=== PATIENT | female | born 1985 | race Caucasian/White ===

== ENCOUNTER → 2022-07-21 | Outpatient (CLI) | payer OTHER ==
--- NOTE | 2022-07-22 07:22 | XR ---
EXAMINATION TYPE: XR cervical spine comp DATE OF EXAM: 07/21/2022 4:26 PM INDICATION: Patient age:Female; 37 years old; Reason for study: S13.9XXD SPRAIN OF JOINTS AND LIGAMENTS OF UNSP PA; COMPARISON: None TECHNIQUE: The cervical spine was imaged in frontal, lateral, odontoid and bilateral oblique. FINDINGS: The osseous structures show normal alignment without evidence of an acute fracture. There are osteoph ytes noted throughout the cervical spine on the anterior and lateral aspects of the vertebral bodies. The intervertebral disk spaces are narrowed at multiple levels. Pedicles are intact. Soft tissues a re within normal limits. The odontoid appears intact. IMPRESSION: 1. No fracture or dislocation. 2. Mild degenerative disc disease changes of the cervical spine worse at C5-C6.
== END | disposition home or self-care (01) ==
LOC: RADXRMAIN 16:02
PROVIDERS: ATTEND Family Medicine
DX: S13.9XXD Sprain of joints and ligaments of unspecified parts of neck, subsequent encounter (principal); M50.322 Other cervical disc degeneration at C5-C6 level; X58.XXXD Exposure to other specified factors, subsequent encounter
CPT/HCPCS: 72050